=== PATIENT | male | born 1990 | race Caucasian/White ===

== ENCOUNTER 2024-11-29 18:09 | Emergency (ER) | payer MEDICAID, OTHER ==
[~2024-11-29] VITALS: Ht 170.2 cm; Wt 77.5 kg
[2024-11-29 18:30] VITALS: PULSE 102; RESP 95; O2SAT 95
[2024-11-29] MEDS: SODIUM CHLORIDE 0.9% 1,000 ML IV ONE (18:30)
[2024-11-29] MEDS: ceFAZolin 1GM/50ML 50 ML IV ONE (18:30)
[2024-11-29] MEDS: TETANUS-DIPTH-ACEL PERTUSSIS 0.5ML SYR Tdap IM ONE (18:30)
[2024-11-29] MEDS: KETOROLAC TROMETH 30 MG/ML 1ML VIAL IV ONE (18:30)
[2024-11-29] MEDS: fentaNYL CITRATE 100 MCG/2 ML VL IV ONE ×3 (18:30→23:24)
[2024-11-29] MEDS: BACITRACIN TOP OINT 1 UD PKG TOP ONE ×2 (18:45)
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
[2024-11-29] MEDS: IOHEXOL 300 MG/ML 100ML BOTTLE IJ ONE (18:49)
[2024-11-29 18:59] VITALS: TEMP 98.6
[2024-11-29 19:01] LABS: Basophils # (auto) 0 10 ^3/uL (0-0.2); Basophils % (auto) 0.1 % (0.0-2.0); Eosinophils # (auto) 0 10 ^3/uL (0-0.8); Hematocrit 45.8 % (41.0-53.0); Hemoglobin 15.4 g/dL (13.5-17.5); Lymphocytes # (auto) 1.4 10 ^3/uL (0.4-5.4); Mean Corpuscular Hemoglobin 29.3 pg (28.0-32.0); Mean Corpuscular Hgb Conc. 33.7 g/dL (32.0-36.0); Mean Corpuscular Volume 87.1 fL (80.0-100.0); Monocytes # (auto) 1.3 10 ^3/uL (0-1.3); Monocytes % (auto) 5.4 % (0.0-12.0); Neutrophils # (auto) 21.1 10 ^3/uL (1.6-8.6); Neutrophils % (auto) 88.5 % (37.0-80.0); Platelet Count (auto) 300 10^3/uL (140-450); Red Blood Cells 5.25 10^6/uL (4.5-5.90); Red Cell Distribution Width 13.4 % (11.8-14.3); White Blood Cell 23.9 10^3/uL (4.4-10.8)
[2024-11-29 19:20] LABS: INR 1.03 (0.9-1.15); Partial Thromboplastin Time 24.8 SEC (24.5-34.5); Prothrombin Time 10.9 sec (9.3-11.8)
[2024-11-29 19:21] LABS: Alkaline Phosphatase 101 U/L (46-116); Anion Gap 13 (5-15); Aspartate Aminotransferase 35 U/L (13-40); BUN/Creatinine Ratio 8.9 (10.0-20.0); Blood Urea Nitrogen 11 mg/dL (9-23); Chloride 106 mmol/L (98-107); Magnesium 2.2 mg/dL (1.6-2.6); Potassium 3.7 mmol/L (3.5-5.1); Sodium 139 mmol/L (136-145); Total Protein 7.1 g/dL (5.7-8.2)
[2024-11-29 19:22] LABS: Alanine Aminotransferase 47 U/L (7-40); Albumin 4.6 g/dL (3.2-4.8); Bilirubin, Total 0.5 mg/dL (0.2-1.0); Calcium 8.7 mg/dL (8.7-10.4); Carbon Dioxide 20 mmol/L (20-31)
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
[2024-11-29 19:51] LABS: Glucose 104 mg/dL (74-106)
--- NOTE | 2024-11-29 19:53 | DVH ---
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 During the uneventful, intravenous administration of c ontrast material, multislice data acquisition was obtained through the abdomen and pelvis. The data s et was subsequently reconstructed into axial images. Images were reviewed on a work station using a c ombination of axial and multiplanar using a variety of window levels and settings. Radiation Dose Information: CT Dose: CTDI volume is 16.13 mGy. Dose-length product is 1153.44 mGy*cm FINDINGS: Lung Bases: No acute or significant lung base finding. Normal heart size. No pleural or pericardial effusion. Liver: The liver is normal in size. No focal lesions. Normal hepatic vascular enhancement. Gallbladder and Biliary Tree: Unremarkable Spleen: Unremarkable Pancreas: The pancreas is normal in appearance without focal lesions or abnormal enhancement. Adrenal Glands: Unremarkable Kidneys: Kidneys demonstrate normal symmetric enhancement without focal lesions, calculi or hydroneph rosis. Bladder: Unremarkable Bowel: The stomach is grossly normal in appearance. Small bowel and colon are normal in caliber and d istribution. The appendix is not visualized; however, no secondary findings of acute appendicitis nita ntified. Ascites: Absent Lymphadenopathy: No mesenteric, retroperitoneal or periportal lymphadenopathy. Abdominal Wall and Mesentery: Unremarkable. Vasculature: The visualized abdominal aorta is normal in size and caliber. Abdominal and pelvic vess els demonstrate normal enhancement. Pelvic Organs: Unremarkable Musculoskeletal: No aggressive focal bony lesions, acute fractures or dislocation. Soft tissues: Unremarkable. IMPRESSION: 1. No acute abnormality in the abdomen or pelvis. 2. No osseous injury 3. No solid organ injury 4. No pneumothorax or pleural effusion. 5. No pneumoperitoneum or ascites HS:Y All CT scans at this medical facility are performed using dose modulation techniques as appropriate t o a performed exam including the following: Automated exposure control was utilized; adjustment of th e MA and/or KV according to patient size; and use of iterative reconstruction technique.
[2024-11-29 19:55] VITALS: PULSE 102; RESP 95; O2SAT 95
[2024-11-29] MEDS: ACETAMINOPHEN 325 MG TAB PO ONE (21:02)
[2024-11-29] MEDS: HYDROcodone-ACET 10/325MG TAB PO ONE (21:02)
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
[2024-11-30] MEDS: BACITRACIN TOP OINT 1 UD PKG TOP ONE (00:45)
[2024-11-30] MEDS: MUPIROCIN 2% OINT 15gm or 22gm TOP ONE (00:45)
[2024-11-30] MEDS: BACITRACIN-POLYMYXIN B TOPICAL OINT UD TOP ONE (00:45)
[2024-11-30] MEDS ORDERED: ACET650T12 PO (01:11)
[2024-11-30] MEDS ORDERED: IBUP-1454 PO (01:11)
[2024-11-30] MEDS ORDERED: BACI-5 EX (01:11)
[2024-11-30] MEDS ORDERED: CEPH250C PO (01:12)
[2024-11-30] MEDS ORDERED: HYDR-4902 PO (01:17)
[2024-11-30 03:45] VITALS: BP 128/84; PULSE 103; RESP 17
== END 2024-11-30 03:55 | disposition home or self-care (01) ==
LOC: ER 18:13
DX: S30.811A Abrasion of abdominal wall, initial encounter (principal); S80.212A Abrasion, left knee, initial encounter; S80.211A Abrasion, right knee, initial encounter; S60.512A Abrasion of left hand, initial encounter; S60.511A Abrasion of right hand, initial encounter; S09.8XXA Other specified injuries of head, initial encounter; M54.2 Cervicalgia; F10.129 Alcohol abuse with intoxication, unspecified; Z79.899 Other long term (current) drug therapy; R06.02 Shortness of breath; V49.88XA Car occupant (driver) (passenger) injured in other specified transport accidents, initial encounter; Y93.I9 Activity, other involving external motion; Y92.488 Other paved roadways as the place of occurrence of the external cause; Y99.8 Other external cause status
CPT/HCPCS: 36415; 70450; 71260; 72125; 73130; 73562; 73590; 73610; 74177; 80053; 83735; 85025; 85610; 85730; 86850; 86900; 86901; 90471; 90715; 96365; 96375; 96376; 99285; J0690; J1885; J3010; J7030; Q9967